=== PATIENT | male | born 1970 | race Caucasian/White ===

== ENCOUNTER 2017-09-27 21:44 | Emergency (ER) | payer OTHER ==
[~2017-09-27] VITALS: Ht 175.3 cm; Wt 91.7 kg
[2017-09-27 21:47] VITALS: Ht 175.3 cm; Wt 91.7 kg
[2017-09-27] MEDS ORDERED: OXYCODONE HCL IR 5 MG TAB (IMMEDIATE RELEASE) PO STA (22:02)
[2017-09-27] MEDS ORDERED: ACET-1175 PO (22:20)
[2017-09-28] MEDS ORDERED: OXYC1TAB3 PO ×2 (00:52→00:53)
[2017-09-28 00:56] VITALS: BP 143/99; PULSE 85; TEMP 36.6; O2SAT 97
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
== END 2017-09-28 01:00 | disposition home or self-care (01) ==
LOC: C.EDB 21:44 → C.EDD 09-28 01:00
DX: S32.010A Wedge compression fracture of first lumbar vertebra, initial encounter for closed fracture (principal); S22.080A Wedge compression fracture of T11-T12 vertebra, initial encounter for closed fracture; V86.99XA Unspecified occupant of other special all-terrain or other off-road motor vehicle injured in nontraffic accident, initial encounter